=== PATIENT | male | born 1935 | race Caucasian/White ===

== ENCOUNTER → 2016-09-15 | Outpatient (CLI) | payer MEDICARE, BC ==
--- NOTE | 2016-09-15 15:07 | XR ---
EXAMINATION TYPE: XR abdomen 1V DATE OF EXAM ORDERED: 09/15/2016 HISTORY: K59.00 Constipation. COMPARISON: None. FINDINGS: The abdominal gas pattern is within normal limits. There is no evidence of obstruction or free air. There is fecal material present in the right side of the colon. The rest the colon. Collaps ed beyond the splenic flexure. There is minimal vascular calcification within the pelvis. IMPRESSION: NO ACUTE INTRA-ABDOMINAL ABNORMALITY.
== END | disposition home or self-care (01) ==
LOC: RADXRMAIN 14:43
PROVIDERS: ATTEND Internal Medicine Geriatric Medicine
DX: K59.00 Constipation, unspecified (principal)
CPT/HCPCS: 74000

== ENCOUNTER → 2017-11-15 | Outpatient (CLI) | payer MEDICARE, BC ==
--- NOTE | 2017-11-15 14:48 | XR ---
EXAMINATION TYPE: XR shoulder complete RT DATE OF EXAM: 11/15/2017 CLINICAL HISTORY: Right shoulder pain for couple of years. TECHNIQUE: Three views of the right shoulder are obtained. COMPARISON: None. FINDINGS: Osseous structures are demineralized. There is no acute fracture/dislocation evident in the right shoulder. Mild narrowing most prominent superiorly with suspected capsular hypertrophy at acro mioclavicular joint is present. Glenohumeral joint is maintained. The visualized ribs are intact and unremarkable. IMPRESSION: As above.
--- NOTE | 2017-11-15 14:50 | XR ---
EXAMINATION TYPE: XR cervical spine comp DATE OF EXAM: 11/15/2017 TECHNIQUE: Frontal, lateral, oblique, and open mouth view of the cervical spine are obtained. 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 COMPARISON: None FINDINGS: The cervical spine is visualized in its entirety from C1 thru the top of T1 level, there i s grade 1 retrolisthesis of C5 on C6 without evidence of acute fracture or dislocation. The pre-vert ebral soft tissue appears within normal limits. The C1-C2 articulation is within normal limits on th e open mouth view. Vertebral body heights are maintained. Mild disc space narrowing C4-C5 level is pr esent. Advanced disc space narrowing with moderate to advanced anterior spurring C5-C6 level is seen. Mild to moderate disc space narrowing and mild anterior spurring C6-C7 level and mild to moderate di sc space narrowing C7-T1 level is identified. The oblique images are felt within normal limits. There is moderate calcified plaque left carotid bulb and minimal calcified plaque right carotid bulb in th e overlying soft tissue. IMPRESSION: Multilevel degenerative changes with most prominent findings and spondylolisthesis noted C5-C6 level. Consider carotid ultrasound to evaluate left-sided carotid bulb calcification.
== END | disposition home or self-care (01) ==
LOC: RADXRMAIN 14:00
PROVIDERS: ATTEND Internal Medicine Geriatric Medicine
DX: M81.0 Age-related osteoporosis without current pathological fracture (principal); M43.12 Spondylolisthesis, cervical region; M47.812 Spondylosis without myelopathy or radiculopathy, cervical region
CPT/HCPCS: 72050

== ENCOUNTER → 2018-01-09 | Outpatient (CLI) | payer MEDICARE, BC ==
--- NOTE | 2018-01-09 20:02 | CONS ---
CONSULTATION SLEEP CONSULTATION: REASON FOR CONSULTATION: Insomnia. This is a pleasant 82-year-old male patient who is coming in with the chief complaint of being unable to get a good night's rest for the past 4 to 5 . This consultation was requested by his primary care physician, Dr. Rausch. In summary, the patient goes to bed around 10 p.m. and wakes up at 6 a.m. in the morning. He has a TV in the bedroom, and sometimes he goes to sleep while the TV is on. He sleeps on his side. His sleeps next to him on a yolanda-sized Tempur-Pedic mattress is quite restless, and she snores and gasps sometimes. The patient himself is a light sleeper. He can initiate sleep; however, he wakes up several times throughout the night. At times he has a hard time going back to sleep. He wakes up for frequent urination. Note that he has a history of bladder cancer and BPH. He is currently on Flomax and he takes it at nighttime. He avoids drinking excessive amounts of fluids late in the evening. However, despite that he wakes up a few times in the middle of night for urination. He does not have increased urination during the day hours. He also has chronic arthritis throughout his large joints and he does not feel comfortable and cannot get himself into a restful position where he can fall asleep easily. He denies snoring. Denies having any apneas or stopping breathing at night time. Denies waking up choking or gasping for air. No sleeptalking. No grinding of the teeth. No sleepwalking. Denies waking up with a dry mouth. No anxiety. No depression. No panic attacks. No night terrors. No head trauma. No sleep paralysis. No cataplexy. No palpitation. No nocturnal heartburn or chest pain or shortness of breath. PAST MEDICAL HISTORY: 1. BPH. 2. Hypothyroidism. 3. Hyperlipidemia. 4. Osteoarthritis. 5. Glaucoma. 6. Bladder cancer. PAST SURGICAL HISTORY: Resection of bladder tumor on multiple occasions. DRUG ALLERGIES: NOT KNOWN. OUTPATIENT MEDICATION LIST: 1. Levothyroxine 50 mcg p.o. daily. 2. Norvasc 2.5 mg p.o. daily. 3. Zocor 20 mg p.o. daily. 4. Tamsulosin 0.4 mg p.o. daily. 5. Lumigan eye drops. 6. Aspirin 81 mg p.o. daily. SOCIAL HISTORY: The patient is a nonsmoker. No history of alcoholism. No history of IV drugs. FAMILY HISTORY: Negative for sleep apnea. REVIEW OF SYSTEMS: Twelve-point review of systems was done. Positive findings were all mentioned above in the history of present illness. The patient does not fall asleep during the day. He does not have any major hypersomnia or sleepiness during the day, and his nighttime sleeping pattern does not affect his quality of daytime functioning and ability to perform different tasks. As such, he does not take any naps. He does not feel sleepy during the day. He has been driving without having to fall asleep and has never been involved in a motor vehicle accident because of feeling drowsy or sleepy. PHYSICAL EXAMINATION: BP is 122/72, pulse 65, respirations 16, temperature 97.6, saturation 95% on room air. Weight is 249. Height is 5 feet 7 inches, Melber score 7. BMI is 33.0. Neck size 16- 1/2 inches. GENERAL APPEARANCE: Calm, comfortable. Head is atraumatic, normocephalic. NECK: Supple. No JVD. No goiter or neck masses. LUNGS: Clear to auscultation. HEART: Heart sounds are regular rate and rhythm. Normal S1, S2. No S3, S4. No murmurs. ABDOMEN: Soft, nontender. No organomegaly. EXTREMITIES: No edema. No cyanosis or clubbing. NEUROLOGIC: Alert and oriented x3. No focal neurological deficit. PSYCHIATRIC: Negative for anxiety or depression. IMPRESSION: 1. Chronic comorbid insomnia. No indication of sleep apnea. No indication of any underlying primary sleep disorder affecting the patient's ability to initiate and maintain sleep. In summary, I would say his sleep was disrupted with aging. In addition, the patient has other comorbidities, including chronic pain and inability to get himself rested in a Tempur-Pedic mattress in addition to increased urination. All these factors have affected his ability to maintain sleep and cause sleep fragmentation. This is a comorbid insomnia rather than a primary sleep disorder. 2. Benign prostatic hypertrophy. 3. Bladder cancer. 4. Hypothyroidism. 5. Hyperlipidemia. 6. History of glaucoma. PLAN: 1. I do not see any need for a sleep study. 2. Will make further adjustments. I asked the patient to change his mattress to a firm mattress, as Tempur-Pedic mattress has made him quite uncomfortable. He will be asked to turn off the TV and eliminate the TV or any other computer work in the bedroom environment. As far as his pain, Tylenol should help him with his pain control, especially when he goes to bed. Suggest taking 2 extra-strength Tylenol for pain control, and muscle relaxants may be also helpful to promote sleep and help him with the pain. No need for any hypnotic agents at this point in time. He should take his tamsulosin in the morning. He should cut down on his water drinking, especially in the afternoon and evening. No alcohol drinking late at nighttime. No coffee or caffeinated beverages late at nighttime. We discussed at length issues related to sleep hygiene, and all these will be implemented. The patient will contact me back if his condition gets worse. I do not see the need for a sleep study. The patient will be referred back to his primary care physician. TOMMY / VUN: [id number] /
== END ==
LOC: SLEEP 14:40
PROVIDERS: ATTEND Internal Medicine
DX: F51.04 Psychophysiologic insomnia (principal); N40.0 Benign prostatic hyperplasia without lower urinary tract symptoms; C67.9 Malignant neoplasm of bladder, unspecified; E03.9 Hypothyroidism, unspecified; E78.5 Hyperlipidemia, unspecified; Z86.69 Personal history of other diseases of the nervous system and sense organs; Z79.899 Other long term (current) drug therapy; Z79.82 Long term (current) use of aspirin
CPT/HCPCS: 99211

== ENCOUNTER 2019-12-27 08:45 | Day surgery (SDC) | payer MEDICARE, BC ==
[2019-12-25 14:47] VITALS: BMI 30.1
[~2019-12-27 08:45] MED LIST: LACTATED RINGERS 1,000 ML IV SCH
[2019-12-27 09:29] VITALS: TEMP 68
[2019-12-27] MEDS ORDERED: LIDOCAINE 1% (10MG/ML) FOR IV START INTRADERMA ONE (09:39)
[2019-12-27] MEDS ORDERED: LIDOCAINE 1% INJ 10MG/ML (20 ML MDV) ONE (10:08)
[2019-12-27] MEDS ORDERED: PROPOFOL 10 MG/ML 20 ML VIAL IV ONE (10:08)
--- NOTE | 2019-12-27 10:30 | P.PCN ---
Date of Procedure: 12/27/19 Procedure(s) Performed: BRIEF HISTORY: Patient is a 84-year-old, pleasant, white male scheduled for an upper endoscopy as a part of evaluation of intermittent dysphagia to solids for 2 months duration. Denies any odynophagia.. PROCEDURE PERFORMED: Esophagogastroduodenoscopy with biopsy. PREOPERATIVE DIAGNOSIS: Intermittent dysphagia to solids. IV sedation per anesthesia. PROCEDURE: After informed consent was obtained, the patient was brought into the endoscopy unit. IV sedation was administered by Anesthesia under continuous monitoring. Initially the Olympus GIF-140 video endoscope was inserted into the mouth. Esophagus intubated without any difficulty. It was gradually advanced into the stomach and duodenum and carefully examined. The bulb and the second part of the duodenum appeared normal. The scope at this time was withdrawn to the stomach, adequately insufflated with air, and upon careful examination, mucosa of the antrum had mild gastritis with scattered erosions and biopsies were done from this area. The, body, cardia and the fundus appeared normal. The scope was then withdrawn into the esophagus. The GE junction was located at 39 cm from the incisors. The esophagus appeared normal. There were no erosions or ulcerations seen , biopsies were done from the distal esophagus and the patient tolerated the procedure well. IMPRESSION: 1. Normal-appearing esophagus with no evidence of esophagitis or esophageal stricture. 2. Antral erosive gastritis. RECOMMENDATIONS: The findings of this examination were discussed with the patient as well as his family. He was advised to follow with the biopsy results. If he continues to have problems with dysphagia and he can have a modified venous followed up to evaluate for any cricopharyngeal dysfunction..
[2019-12-27 10:49] VITALS: BP 127/80; PULSE 54; RESP 16
== END 2019-12-27 11:19 | disposition home or self-care (01) ==
LOC: ORWHC2ENDO 08:45
PROVIDERS: ATTEND Internal Medicine Gastroenterology
DX: K25.9 Gastric ulcer, unspecified as acute or chronic, without hemorrhage or perforation (principal); K29.50 Unspecified chronic gastritis without bleeding; K22.8 Other specified diseases of esophagus; I10 Essential (primary) hypertension; E78.5 Hyperlipidemia, unspecified; N42.9 Disorder of prostate, unspecified; C67.9 Malignant neoplasm of bladder, unspecified; F32.9 Major depressive disorder, single episode, unspecified; H40.9 Unspecified glaucoma; G47.00 Insomnia, unspecified; Z79.899 Other long term (current) drug therapy; Z79.890 Hormone replacement therapy; Z79.82 Long term (current) use of aspirin
CPT/HCPCS: 88305; 43239; J2001; J2704

== ENCOUNTER → 2021-08-26 | Outpatient (CLI) | payer MEDICARE, BC ==
--- NOTE | 2021-08-26 13:06 | US ---
EXAMINATION TYPE: US kidneys/renal and bladder DATE OF EXAM: 08/26/2021 COMPARISON: NONE CLINICAL HISTORY: 85-year-old male N21.0 CALCULUS OF KIDNEY. Calculus of kidney. Hx bladder cancer wi th surgery. TECHNIQUE: Multiple sonographic images of the kidneys and bladder are obtained. FINDINGS: EXAM MEASUREMENTS: Right Kidney: 10.4 x 5.5 x 5.1 cm Left Kidney: 10.9 x 5.3 x 4.7 cm Right Kidney: No hydronephrosis or masses seen, Slightly lobulated contour. Left Kidney: Anechoic area seen centrally at the mid to lower pole: 3.0 x 3.5 x 2.3 cm. Bladder: Possible internal echoes versus artifact. Tiny echogenic nodules seen along the right parame amelia posterior bladder wall measuring 0.4 x 0.4 x 0.2 cm. Bilateral Jets seen: Yes Incidental finding: Inferior right liver lobe cyst measuring 2.5 x 2.2 x 2.1 cm. There may be some punctate peripheral calcification along the posterior wall. IMPRESSION: 1. Normal right kidney without hydronephrosis. 2. Left kidney demonstrating a 3.5 cm cystic area at the central mid to lower pole. Either a parapelv ic cyst versus dilatation of the lower pole renal collecting system. Correlate with urinalysis. If an y abnormal findings, consider further evaluation with contrast-enhanced CT. Otherwise, a follow-up ul trasound in 3 months can reassess. 3. Ultrasound follow-up can also reassess a 4 mm echogenic nodule along the right posterior bladder w all and exclude a tiny early urothelial lesion.
== END | disposition home or self-care (01) ==
LOC: RADUSWWP 06:46
PROVIDERS: ATTEND Internal Medicine Geriatric Medicine
DX: N20.0 Calculus of kidney (principal)
CPT/HCPCS: 76770